=== PATIENT | female | born 1940 | race Caucasian/White ===

== ENCOUNTER → 2017-04-21 | Outpatient (CLI) | payer OTHER, BC ==
[~2017-04-21] MED LIST: DOXYCYCLINE 10100 MG PO; TESSALON200 MG PO; [UNRECOGNIZED DRUG - OTHER] PO
== END ==
LOC: RAD 02:23
DX: Z12.31 Encounter for screening mammogram for malignant neoplasm of breast (principal)

== ENCOUNTER → 2017-05-29 | Outpatient (CLI) | payer OTHER, BC ==
[~2017-05-29] VITALS: Ht 152.4 cm; Wt 49.0 kg
[~2017-05-29] MED LIST changes: +MOBIC7.5 MG PO; +OMEPRAZOLE 20 M20 M1 PO; +TRAMADOL 50 MG50 MG PO
--- NOTE | ~2017-05-29 | HPC ---
[facility] [place] [address] PAIN MANAGEMENT CONSULTATION Name: MAXIMILIANOELIZABETH Bambi Room #: REG IMAN Abida#: [id number] Admission: 05/29/17 Attend Phys: Barak Corbin DO Discharge: Date of : 39 Report #: [id number] THIS REPORT FOR: //name// CC: Neil Corbin INDICATION: The patient is a pleasant 76-year-old female seen in consultation at the request of Dr. Guerrero for evaluation of pain in low back, left buttock and posterior thigh down to the foot. She has subjective paresthesia. It is equivocal on whether or not she has weakness. She denies saddle anesthesia or bowel or bladder continence changes. Pain has been present for greater than four weeks. She has tried lmyx-qzn-dagrhak anti-inflammatories, has not done physical therapy, hydrocodone caused nausea and vomiting. She notes the pain is exacerbated with standing and walking and describes continuous, constant, aching, pulling, tender pain. She rates it as an 8 on a visual analog scale. She gets some relief when she is recumbent. REVIEW OF SYSTEMS: Complete review of systems is attached to chart and gone over with the patient. She is , seen in the company of her who is supportive. She does not smoke or drink alcohol in excess. She has enjoyed remarkably good health, she has had colon issues, status post cholecystectomy and hysterectomy in the 1970s and 1980s. She has been retired for a number of years. Pain impact score averages 49/70. PHYSICAL EXAMINATION: GENERAL: Reveals a 5 feet tall, 108 pound female, BMI is 21.1 kilograms per meter squared. VITAL SIGNS: Stable. HEENT: Cranial nerves 2-12 are grossly intact. Pupils are equal, reactive to light and accommodation. Extraocular muscles are intact. She is alert and oriented to person, place and time, judged to be a reasonable historian. NECK: Thyroid is unremarkable. She has modest thoracic kyphosis. HEART: Regular rhythmical without murmur. LUNGS: Clear to auscultation. MUSCULOSKELETAL: Rises from chair using armrest. Has a minimally antalgic gait. Lumbar flexion is good at 90 degrees. Tender over the left low back. Positive straight leg raise on the left with notable decreased left hip flexion. Lower extremity extension and plantar flexion strength about 3/5 versus 4/5 on the right. Patellar reflex is diminished on the left compared to the right 2/4 versus 1/4. Again straight leg raise positive at 30 degrees on the left. DIAGNOSTIC STUDIES: Include MRI of the lumbar spine from 05/25/2017. L4-L5 notes left-sided broad-based disk protrusion effacing the anterior inferior aspect of the left L4 nerve root. ASSESSMENT: Symptomatic lumbar radiculopathy by clinical exam and history. [address] [address] PAIN MANAGEMENT CONSULTATION Name: ELIZABETH VIERA [facility] #: [facility] [id number] Admission: 05/29/17 Attend Phys: Barak Corbin DO Discharge: Date of : 39 Report #: [id number] RECOMMENDATION: 1. Continue meloxicam 7.5 b.i.d. 2. I have taken the liberty of providing the patient a prescription for tramadol 50 mg 1 tablet 3 or 4 times a day as needed for pain. 3. Epidural injection under fluoroscopy today at L4-L5. 4. Follow up in 3 weeks for reevaluation. PROCEDURE NOTE: Lumbar epidural steroid injection under fluoroscopy. DESCRIPTION OF PROCEDURE: After both written and informed consent to include risk of spinal cord damage, increased pain, weakness and dural puncture, the patient was taken to the fluoroscopy suite, placed in the prone position. After sterile prep and drape, a skin wheal with lidocaine was raised. A 22-gauge epidural Tuohy needle was inserted in the midline at L4-L5 with good loss to resistance. Negative aspiration for cerebrospinal fluid or blood was noted. Then 1 mL of Omnipaque under biplanar fluoroscopy showed good spread within the epidural space. This was followed with 80 mg of triamcinolone plus 1 mL of 1.5% preservative-free Xylocaine, 0.5 mL Xylocaine was then injected to flush the needle; it was removed. The patient was monitored for an appropriate period of time and discharged in good and stable condition. <ELECTRONICALLY SIGNED> By: Barak Corbin DO 06/05/17 1401 [id number] Barak Corbin DO /nt
[2017-05-29 14:18] VITALS: BP 116/61
== END | disposition home or self-care (01) ==
LOC: PAIN
DX: M54.16 Radiculopathy, lumbar region (principal); Z87.891 Personal history of nicotine dependence

== ENCOUNTER → 2017-06-26 | Outpatient (CLI) | payer OTHER, BC ==
[~2017-06-26] VITALS: Ht 152.4 cm; Wt 48.4 kg
[~2017-06-26] MED LIST changes: +ESTRADIOL 1 MG T1 M1 PO; +HYDROCODON-ACE1 EAC8 PO
--- NOTE | ~2017-06-26 | HPC ---
[facility] [place] [address] PAIN MANAGEMENT CONSULTATION Name: ELIZABETH VIERA Room #: REG IMAN Tai#: [id number] Admission: 06/26/17 Attend Phys: Barak Corbin DO Discharge: Date of : 39 Report #: [id number] THIS REPORT FOR: //name// CC: Neil Corbin The patient is a pleasant 76-year-old female, seen in consultation 05/29/2017. We diagnosed her with symptomatic lumbar radiculopathy by clinical exam and history, the patient was given a midline epidural injection at L4-L5, returns to pain clinic today noting that the injection afforded 75% relief, lasted about 3 weeks, pain has recurred, but it is still a little bit better. She has a neurogenic claudication. If she walks 20 steps or 2-3 minutes, pain becomes problematic, again it is still better than it had been at baseline. PHYSICAL EXAMINATION: Today, shows a 76-year-old female, BMI is 20.8 kg/m2. Vital signs are stable as noted in the EMR. Rises from chair using armrest. Antalgic gait favoring the left leg. Positive straight leg raise on this side. Classic left L4 radicular pain pattern. We reviewed the MRI from 05/25/2017, shows broad-based left foraminal disk protrusion at L4-L5. RECOMMENDATIONS: 1. Left L4-L5 transforaminal epidural injection today. 2. Follow up with neurosurgery if this does not afford adequate relief. PROCEDURE: Transforaminal epidural injection under fluoroscopy. PROCEDURE NOTE: After both written and informed consent was obtained including risk of spinal cord damage, infection, increased pain and paralysis, the patient agreed to proceed. The patient was taken to the fluoroscopy suite, placed in a prone position with appropriate abdominal bolstering. After sterile prep with ChloraPrep and sterile drape, a skin wheal with 1% Xylocaine was raised. A 22 gauge 4-1/2 inch epidural Tuohy needle was inserted. From an oblique approach into the posterior-superior aspect of the left L4-L5 neural foramen with continuous pressure on the glass syringe plunger for loss of resistance. Glass syringe was filled with 2 cc of 0.1 Xylocaine. The glass loss of resistance syringe was removed. A low volume extension tubing was connected, negative aspiration was accomplished for cerebrospinal fluid or blood. 1 mL of Omnipaque was injected which showed spread both within the epidural space and laterally along the nerve root. This was followed with 80 mg of triamcinolone plus 1 mL of 1.5% preservative-free Xylocaine. Needle was partially withdrawn, 0.5 mL of Xylocaine was injected to clear the needle and the needle was removed. The [address] [address] PAIN MANAGEMENT CONSULTATION Name: MAXIMILIANOELIZABETH A Room #: REG CLMireille Tai#: [id number] Admission: 06/26/17 Attend Phys: Barak Corbin DO Discharge: Date of : 39 Report #: [id number] was cleansed, band-aid was applied. The patient was allowed to ambulate to the recovery room, discharged in good and stable condition. By: 1804 2150 Barak Corbin DO /nt
[2017-06-26 10:19] VITALS: BP 111/75
== END | disposition home or self-care (01) ==
LOC: PAIN 06-19 06:53
DX: M54.16 Radiculopathy, lumbar region (principal); Z87.891 Personal history of nicotine dependence; Z88.6 Allergy status to analgesic agent; Z88.8 Allergy status to other drugs, medicaments and biological substances; Z79.899 Other long term (current) drug therapy; Z79.891 Long term (current) use of opiate analgesic

== ENCOUNTER → 2017-07-27 | Outpatient (CLI) | payer OTHER, BC ==
[~2017-07-27] VITALS: Ht 152.4 cm; Wt 47.2 kg
[~2017-07-27] MED LIST changes: +ASPIR 8181 MG PO; +CALCIUM 600+D31 EACH PO; +VITAMIN D1000 UNI1 PO
--- NOTE | ~2017-07-27 | HPC ---
[facility] [place] [address] [place] [address] PAIN MANAGEMENT CONSULTATION Name: ELIZABETH VIERA Room #: REG [facility] Abida#: [id number] Admission: 07/27/17 Attend Phys: Barak Corbin DO Discharge: Date of : 39 Report #: [id number] THIS REPORT FOR: //name// CC: Neil Corbin The patient is a pleasant 76-year-old female, prior seen in the pain clinic, initially given epidural injection at L4-L5 on 05/29/2017, had a left L4-L5 transforaminal epidural injection on 06/26/2017. She returns to pain clinic today noting both injections afforded good relief, the initial injection afforded about 75% relief, transforaminal epidural injection took sometime, several days up to 5-6 days before relief occurred. She notes overall she is doing better, but still has paresthesia in the left lateral leg and thigh. Rates her subjective pain score of 4 on a VAS. She continues to take hydrocodone 7.5/325 at bedtime. PHYSICAL EXAMINATION: Shows a pleasant 76-year-old female, BMI is 20.3 kg/m2. Vital signs are stable as noted in the EMR. Rises from chair using armrest. Nominally antalgic gait. Lumbar flexion is good to about 90 degrees. Diffuse tenderness across the low back. No discrete trigger points are noted. Lower extremity strength is diminished, but symmetric about 3-4/5. She does have modestly positive straight leg raise on the left. We reviewed MRI from 05/25/2017, L4-L5 does note broad-based left disk protrusion. ASSESSMENT: Symptomatic lumbar radiculopathy by clinical exam and history, good incremental improvement following 1 epidural injection. RECOMMENDATIONS: 1. Renew hydrocodone 5/325, dispense 60 tablets with directions one tablet up to b.i.d. Typically taking one at bedtime encourage the lowest possible effective dose. 2. Epidural injection under fluoroscopy today, midline L4-L5. 3. Follow up in 4 weeks for reevaluation; if today's procedure does not afford adequate relief, may consider referral to neurosurgery, though given excellent relief with prior intervention and no focal myelopathic symptoms, I suspect that this will not be required. PROCEDURE: Lumbar epidural injection under fluoroscopy. PROCEDURE NOTE: After both written and informed consent to include risk of spinal cord damage, increased pain, weakness and dural puncture, the patient was taken to the fluoroscopy suite, placed in the prone position. After sterile prep and drape, a skin wheal with lidocaine was raised. A 22-gauge epidural Tuohy needle was inserted in the midline at L4-L5 with good loss to resistance. Negative aspiration for cerebrospinal fluid or blood was noted. Then 1 mL of [address] [address] PAIN MANAGEMENT CONSULTATION Name: ELIZABETH VIERA Room #: REG CL Abida#: [id number] Admission: 07/27/17 Attend Phys: Barak Corbin DO Discharge: Date of : 39 Report #: [id number] Omnipaque under biplanar fluoroscopy showed good spread within the epidural space. This was followed with 80 mg of triamcinolone plus 1 mL of 1.5% preservative-free Xylocaine, 0.5 mL Xylocaine was then injected to flush the needle; it was removed. The patient was monitored for an appropriate period of time and discharged in good and stable condition. <ELECTRONICALLY SIGNED> By: Barak Corbin DO 07/28/17 0954 1131 [id number] Barak Corbin DO /nt
[2017-07-27 09:46] VITALS: BP 120/67
== END ==
LOC: PAIN 06:39
DX: M54.16 Radiculopathy, lumbar region (principal); Z79.891 Long term (current) use of opiate analgesic; Z98.890 Other specified postprocedural states; Z87.891 Personal history of nicotine dependence; Z88.8 Allergy status to other drugs, medicaments and biological substances; Z79.82 Long term (current) use of aspirin; Z79.899 Other long term (current) drug therapy

== ENCOUNTER → 2017-08-17 | Outpatient (CLI) | payer OTHER, BC ==
[~2017-08-17] VITALS: Ht 152.4 cm; Wt 49.0 kg
--- NOTE | ~2017-08-17 | P ---
[facility] [place] [address] [place] [address] PROCEDURE REPORT Name: MAXIMILIANOELIZABETH A Room #: REG [facility]#: [id number] Admission: 08/17/17 Attend Phys: Sima Vieira MD Discharge: Date of : 39 Report #: [id number] THIS REPORT FOR: //name// CC: SIMA Vieira BRIEF HISTORY: The patient is a 76-year-old woman who has had chest burning type pain recently. She has been treated with omeprazole, which helps her pain. She also has intermittent solid food dysphagia at the level of the suprasternal notch. PREOPERATIVE DIAGNOSES: Atypical chest pain and solid food dysphagia. POSTOPERATIVE DIAGNOSES: 1. Patchy erythematous antral gastritis. 2. Questionable short segment of Smith mucosa. 3. Solid food dysphagia. MEDICATIONS: Deep sedation with propofol for anesthesia. SPECIMEN: 1. Biopsies of gastritis. 2. Biopsy, distal esophagus, rule out Smith. ESTIMATED BLOOD LOSS: Trivial. PROCEDURE: EGD with biopsy and Salguero dilation. FINDINGS: Prior to propofol sedation, the procedure of upper endoscopy and dilation were discussed with the patient as well as potential risks and complications. She indicates she understands and desires to proceed. DESCRIPTION OF PROCEDURE: With the patient in left lateral decubitus position, the [employer] video endoscope was inserted in the cervical esophagus under direct vision without difficulty. Examination of this organ through its entire length revealed normal esophageal mucosa down the squamocolumnar junction. Squamocolumnar junction was inspected. She was noted to have an irregular course of her squamocolumnar junction and on about one-third of the circumference, there was a 1-2 cm segment of possible Smith mucosa. The mucosa was flat. No ulcers were seen. No strictures were seen. No masses were seen. Biopsies were obtained to evaluate for Smith mucosa. In addition, there was no endoscopic evidence of esophagitis at this time. The scope was advanced in the stomach, was examined on end view as well as retroflexed views. There was noted be some erythema in the antrum. No ulcers or erosions were seen. Upon retroflexion, no mass lesions were seen. A significant hiatus hernia was not seen. Biopsies obtained of the gastric mucosa. The pylorus, [address] [address] PROCEDURE REPORT Name: ELIZABETH VIERA Room #: REG Mireille Tai#: [id number] Admission: 08/17/17 Attend Phys: Sima Vieira MD Discharge: Date of : 39 Report #: [id number] duodenal bulb and postbulbar sweep were inspected and noted to be unremarkable. The duodenal papilla was well seen. No abnormalities were noted. At that point, the scope was slowly withdrawn and careful circumferential views confirmed the above findings. The patient tolerated the procedure well. Although stricture was not seen, based on her symptoms, she was dilated with 50-Bulgarian Salguero dilator without any resistance. At that point, the scope was withdrawn and careful circumferential views confirmed the above findings. The patient tolerated the procedure well. CONDITION OF THE PATIENT UPON DISCHARGE: Following procedure, the patient is drowsy, arousable, conversant and will be discharged to home when fully ambulatory. INSTRUCTIONS TO THE PATIENT AND FAMILY AT THE TIME OF DISCHARGE: We will follow up on biopsies obtained today. If she does have Smith mucosa, would suggest a repeat EGD and repeat biopsies in about 6 months to ensure an accurate diagnosis. I do not see evidence of peptic esophagitis at this time. She has had relief of symptoms with omeprazole. She may continue omeprazole and when she has been free of symptoms for a number of weeks, she can try to take it less than daily, at lowest dose to control her symptoms. She is to return for dilation on an as needed basis. She will return to care of Dr. Sima Guerrero. Review of our records indicate that her last colonoscopy was more than 10 years ago. We will discuss with the patient and . If that is the case, suggest she have a screening colonoscopy. <ELECTRONICALLY SIGNED> By: Sima Vieira MD 08/19/17 1158 0817 1131 Sima Vieira MD /nt
--- NOTE | ~2017-08-17 | S ---
[facility] [place] [address] [place] [address] SURGICAL PATH RPT PROCEDURE Name: BETTINA VIERA Room #: REG [facility] Nicolette#: [id number] Admission: 08/17/17 Date of : 39 Discharge: Report #: [id number] Path Case #: [id number] PATHOLOGY REPORT COLLECTION DATE: 08/17/2017 RECEIVED DATE: 08/17/2017 SUBMITTING PHYS: Dr. Neil Vieira OTHER PHYS: Dr. Neil Guerrero SPECIMEN(S) RECEIVED: A.Biopsy gastritis B.Biopsy GE junction * * * * * * * * * * * * FINAL DIAGNOSIS: A. "Biopsy gastritis," biopsy: - Gastric mucosa with reactive changes and focal active gastritis with minimal to mild background chronic inflammation. - Negative H. pylori immunohistochemical stain (block A1); control reacted appropriately. B. "Biopsy GE junction," biopsy: - Esophageal squamous mucosa and gastric cardiac type mucosa with reactive changes and mild chronic inflammation; no intestinal metaplasia or dysplasia seen. (CLW:mgandrea; 08/18/2017) PATHOLOGIST: Shabana Mcmhaon M.D. REPORT ELECTRONICALLY SIGNED BY: Shabana Mcmahon M.D. DATE/TIME: 08/18/2017 13:16 * * * * * * * * * * * * GROSS PATHOLOGY: A. Received in formalin labeled "AishwaryaJamest, gastritis rule out H. pylori" and consists of 4 villa mucosal biopsies ranging in size from 0.2 cm-0.6 cm in greatest dimension. The specimen is totally submitted as A1. B. Received in formalin labeled "Bettina Viera, GE junction rule out Smith's" and consists of 3 villa mucosal biopsies ranging in size from 0.2 cm-0.5 cm in greatest dimension. The specimen is totally submitted as B1. (CECILLE; 08/17/2017) CLINICAL HISTORY: Reflux, dysphagia, gastritis [address] [address] SURGICAL PATH RPT PROCEDURE Name: BETTINA VIERA Room #: [facility]#: [id number] Admission: 08/17/17 Date of : 39 Discharge: Report #: [id number] Path Case #: [id number] INITIAL CPT CODE(S): A; 83942, 91136 B; 19421 Professional services performed by [facility] at [address], [place] [address] Technical services performed by [facility] at [address] [place] [address], [facility] [address], [place] [address]. [facility] [address] [address] PHONE: [phone] DIRECTOR: William Manuel M.D. * * * END OF REPORT * * *
== END | disposition home or self-care (01) ==
LOC: GI 07:05
DX: K29.50 Unspecified chronic gastritis without bleeding (principal); K20.8 Other esophagitis; K21.9 Gastro-esophageal reflux disease without esophagitis; Z90.49 Acquired absence of other specified parts of digestive tract; Z90.710 Acquired absence of both cervix and uterus; Z98.890 Other specified postprocedural states; Z88.8 Allergy status to other drugs, medicaments and biological substances; Z79.82 Long term (current) use of aspirin; Z79.899 Other long term (current) drug therapy
CPT/HCPCS: 62110; 62900

== ENCOUNTER → 2018-04-25 | Outpatient (CLI) | payer OTHER, BC | LOC: RAD 00:45 | DX: Z12.31 Encounter for screening mammogram for malignant neoplasm of breast (principal) ==

== ENCOUNTER → 2019-04-26 | Outpatient (CLI) | payer OTHER | LOC: RAD 01:51 | DX: Z12.31 Encounter for screening mammogram for malignant neoplasm of breast (principal) ==

== ENCOUNTER → 2020-05-25 | Outpatient (CLI) | payer OTHER | LOC: BC 12:32 | PROVIDERS: ATTEND Internal Medicine | DX: Z12.31 Encounter for screening mammogram for malignant neoplasm of breast (principal) ==

== ENCOUNTER → 2021-05-26 | Outpatient (CLI) | payer OTHER | LOC: RAD 11:49 | PROVIDERS: ATTEND Internal Medicine | DX: Z12.31 Encounter for screening mammogram for malignant neoplasm of breast (principal); N64.89 Other specified disorders of breast ==